=== PATIENT | female | born 1995 | race Caucasian/White ===

== ENCOUNTER 2022-10-10 18:37 | Emergency (ER) | payer OTHER ==
[2022-10-10 18:46] VITALS: BP 128/76
[2022-10-10] MEDS ORDERED: BUFFERED LIDOCAINE 10 ML SYRINGE SUBQ STA (19:11)
[2022-10-10] MEDS ORDERED: AMOX/CLAV 875 MG/125 MG TABLET PO STA (19:11)
--- NOTE | 2022-10-10 19:12 | ED Physician Documentation ---
PD HPI WOUND RECHECK - Stated complaint Stated Complaint: FINGER INFECTION - Chief complaint Chief Complaint: Wound - Histroy obtained from History obtained from: Patient (3 to 4 days of swelling of the right ring finger with some streaking and increased pain today. Tetanus is up-to-date.) PD PAST MEDICAL HISTORY - Present Medications Home Medications: Ambulatory Orders Medication Instructions Recorded Confirmed Amox/Clav 875/125 [Augmentin] 1 each PO Q12H #14 tablet 10/10/22 - Allergies Allergies/Adverse Reactions: Allergies Allergy/AdvReac Type Severity Reaction Status Date / Time No Known Drug Allergies Allergy Verified 10/10/22 18:46 PD ED PE NORMAL - Vitals Vital signs reviewed: Yes - General General: Alert and oriented X 3, No acute distress - Extremities Extremities: Other (She has a large paronychia of the right ring finger with surrounding cellulitis.) - Neuro Neuro: Alert and oriented X 3, Normal speech Results - Vitals Vitals: Vital Signs - 24 hr 10/10/22 18:43 Temperature 36.6 C Heart Rate 62 Respiratory 16 Rate Blood Pressure 128/76 O2 Saturation 100 Oxygen O2 Source Room air Procedures - General procedure General procedure: A digital block was done With buffered lidocaine and then a stab incision was made into the purulent part of the paronychia. Pus was returned and a culture was obtained. She tolerated this well. Departure - Departure Disposition: 01 Home, Self Care Clinical Impression: Paronychia Condition: Good Record reviewed to determine appropriate education?: Yes Instructions: ED Fingernail Infec Prescriptions: Amox/Clav 875/125 [Augmentin] 1 each PO Q12H #14 tablet Comments: I sent your prescription electronically to the [facility] pharmacy on the [place]. We are performing a wound culture, the results should be done in 48-72 hours. If antibiotic change is necessary we will call you. Return if worse in the meantime, especially if you develop increased pain, fevers, cannot keep down the medication. Otherwise follow-up with your physician in approximately 2-3 days.
== END 2022-10-10 19:46 | disposition home or self-care (01) ==
LOC: ED 18:37
DX: L03.011 Cellulitis of right finger (principal)
CPT/HCPCS: 10060; 87070; 87205; 99283; A9270

== ENCOUNTER 2023-03-04 11:08 | Emergency (ER) | payer OTHER ==
[2023-03-04 11:45] LABS: BASOPHILS % (AUTO) 0.4 %; EOSINOPHILS % (AUTO) 0.1 %; HCT - HEMATOCRIT 37.6 % (37.0-47.0); HGB - HEMOGLOBIN 12.4 g/dL (12.0-16.0); LYMPHOCYTES % (AUTO) 20.1 %; MEAN CORPUSCULAR HEMOGLOBIN 31.3 pg (27.0-31.0); MEAN CORPUSCULAR VOLUME 94.9 fL (81.0-99.0); MEAN PLATELET VOLUME 9.3 fL (7.9-10.8); MONOCYTES # (AUTO) 0.7 10^3/uL (0.0-1.0); MONOCYTES % (AUTO) 6.5 %; NEUTROPHILS # (AUTO) 7.3 10^3/uL (1.5-6.6); NEUTROPHILS % (AUTO) 72.7 %; PLT - PLATELET COUNT 268 10^3/uL (130-450); RED BLOOD COUNT 3.96 10^6/uL (4.20-5.40); RED CELL DISTRIBUTION WIDTH 11.9 % (12.0-15.0); WHITE BLOOD COUNT 10.1 x10^3/uL (4.8-10.8)
[2023-03-04 11:56] LABS: ALBUMIN 4.8 g/dL (3.2-5.5); ALBUMIN/GLOBULIN RATIO 1.8 (1.0-2.2); BILIRUBIN,TOTAL 0.4 mg/dL (0.2-1.0); CALCIUM 9.5 mg/dL (8.5-10.3); CREATININE 0.7 mg/dL (0.6-1.3); POTASSIUM 3.8 mmol/L (3.5-4.5); TOTAL PROTEIN 7.5 g/dL (6.4-8.9)
--- NOTE | 2023-03-04 13:24 | ED Physician Documentation ---
History of Present Illness - Stated complaint Stated Complaint: FEMALE - Chief complaint Chief Complaint: Abd Pain - Additonal information Additional information: 28-year-old female referred to the emergency department for evaluation of p ossible miscarriage in first trimester . LMP 01/24/2023. G3, P2. Previous pregnancies delivered without complications. Patient states that last night she began having vaginal bleeding that feels menstrual-like. She is also been having some cramping. No fevers. No nausea or vomiting. No urinary symptoms. She is Rh+. Review of Systems Constitutional: denies: Fever, Chills : reports: LMP (01/24/2023), Vaginal bleeding. denies: Dysuria, Frequency Musculoskeletal: denies: Neck pain PD PAST MEDICAL HISTORY - Past Surgical History Past Surgical History: No - Present Medications Home Medications: Ambulatory Orders Medication Instructions Recorded Confirmed Amox/Clav 875/125 [Augmentin] 1 each PO Q12H #14 tablet 10/10/22 - Allergies Allergies/Adverse Reactions: Allergies Allergy/AdvReac Type Severity Reaction Status Date / Time No Known Drug Allergies Allergy Verified 03/04/23 11:21 - Social History Does the pt smoke?: No Smoking Status: Never smoker Does the pt drink ETOH?: No Does the pt have substance abuse?: No - Immunizations Immunizations are current?: Yes PD ED PE NORMAL - General General: Alert and oriented X 3, No acute distress - HEENT HEENT: PERRL - Cardiac Cardiac: No murmur - Respiratory Respiratory: Clear bilaterally - Abdomen Abdomen: Normal bowel sounds, Soft, Non tender Results - Vitals Vitals: Vital Signs - 24 hr 03/04/23 03/04/23 03/04/23 11:19 11:21 13:21 Temperature 36.5 C 36.5 C Heart Rate 80 80 98 Respiratory 20 20 18 Rate Blood Pressure 108/70 108/70 110/70 O2 Saturation 99 99 99 Oxygen O2 Source Room air - Labs Labs: Laboratory Tests 03/04/23 03/04/23 03/04/23 11:31 11:31 11:31 WBC 10.1 RBC 3.96 L Hgb 12.4 Hct 37.6 MCV 94.9 MCH 31.3 H MCHC 33.0 RDW 11.9 L Plt Count 268 MPV 9.3 Neut # (Auto) 7.3 H Lymph # (Auto) 2.0 Fallon # (Auto) 0.7 Eos # (Auto) 0.0 Baso # (Auto) 0.0 Absolute Nucleated RBC 0.00 Nucleated RBC % 0.0 Sodium 137 Potassium 3.8 Chloride 105 Carbon Dioxide 27 Anion Gap 5.0 L BUN 14 Creatinine 0.7 Estimated GFR (MDRD) 98 Glucose 92 Calcium 9.5 Total Bilirubin 0.4 AST 13 ALT 12 Alkaline Phosphatase 58 Total Protein 7.5 Albumin 4.8 Globulin 2.7 Albumin/Globulin Ratio 1.8 Lipase 20 Beta HCG, Quant Blood Type O POSITIVE 03/04/23 11:31 WBC RBC Hgb Hct MCV MCH MCHC RDW Plt Count MPV Neut # (Auto) Lymph # (Auto) Fallon # (Auto) Eos # (Auto) Baso # (Auto) Absolute Nucleated RBC Nucleated RBC % Sodium Potassium Chloride Carbon Dioxide Anion Gap BUN Creatinine Estimated GFR (MDRD) Glucose Calcium Total Bilirubin AST ALT Alkaline Phosphatase Total Protein Albumin Globulin Albumin/Globulin Ratio Lipase Beta HCG, Quant 361.5 Blood Type - Rads (name of study) pelvic US Relevant Findings:: Final report received (Possible gestational sac at the lower uterine segment. Left corpus luteal cyst. No definitive findings of IUP) PD Medical Decision Making - ED course Complexity details: reviewed results, re-evaluated patient, d/w patient ED course: 28-year-old female presents emergency department for evaluation of vaginal bleeding the first trimester . LMP 01/24/2023. G3, P2. She began having menstrual-like vaginal bleeding last night. Patient is Rh+. CBC hCG and electrolytes obtained today and is interpreted by myself show no acute worrisome abnormalities. She is not anemic. Vital signs have been without derangement. An ultrasound completed showed no confirmative evidence of an IUP but likely a gestational sac at the lower uterine segment. There is a left corpus luteal cyst. Given the menstrual-like vaginal bleeding this likely indicates the patient is having a spontaneous miscarriage. Her hormone level today is 360. She is advised to follow-up with her PCP or OB in the next 48 to 72 hours to have the hormone levels rechecked. The usual emergent return precautions for failure of the bleeding to resolve, pain pelvic pain or fevers was discussed. Departure - Departure Disposition: 01 Home, Self Care Clinical Impression: Threatened miscarriage in early Condition: Stable Record reviewed to determine appropriate education?: Yes Instructions: ED Miscarriage Poss Comments: Today you are seen because she began having menstrual-like vaginal bleeding in the first trimester of . Your hormone level today is 360. If the is going to continue normally, hormone levels will typically double every 48-72 hours. You should have your primary doctors order an hCG on Monday. If rising there is hope that the could continue. The ultrasound today did not show definitive IUP though there was a gestational sac at the lower uterine segment. With the type of bleeding you are describing it is possible that this is a spontaneous miscarriage. If this is a spontaneous miscarriage you can expect a cycle to last a little longer than you would expect a normal cycle. I would be concerned if you develop sudden severe lower pelvic pain, had any fevers, severe chest pain or shortness of air. Forms: PCP List
[2023-03-04 15:09] VITALS: BP 112/72
--- NOTE | 2023-03-04 15:49 | Ultrasound Report ---
PROCEDURE: OB First Trimester w/TV INDICATIONS: vaginal bleeding OUTSIDE/PRIOR DATING DATA: Last menstrual period (LMP): 01/24/2023. LMP-based estimated date of delivery (EMMA): 10/31/2023. First dating scan (date and location): Not applicable. Estimated date of delivery (EMMA) from first dating scan: Not applicable. TECHNIQUE: Real-time scanning was performed of the fetus and maternal pelvic organs, with image documentation. Endovaginal scanning was also performed to better visualize the fetus and maternal ovaries. COMPARISON: None. FINDINGS: Uterus is appropriate in size and position. There is a suggestion of a gestational sac within the end ometrial canal without a significant trophoblastic reaction in the lower uterine segment. No internal contents. Both ovaries have appropriate size and echotexture. Left-sided corpus luteum cyst present. No free fl uid or adnexal mass. IMPRESSION: Possible gestational sac in the lower uterine segment. Differential possibilities include in progress, pseudosac with nonvisualized ectopic . Normal early is also possible bu t less likely. Advise short-term follow-up Reviewed by: Mathieu Mueller MD on 03/04/2023 2:48 PM [facility] Approved by: Mathieu Mueller MD on 03/04/2023 2:48 PM [facility] Station ID: [id number]
== END 2023-03-04 15:05 | disposition home or self-care (01) ==
LOC: ED 11:08
DX: O20.0 Threatened abortion (principal)
CPT/HCPCS: 36415; 80053; 83690; 84702; 85025; 86900; 86901; 99283; 99284

== ENCOUNTER 2023-03-07 10:20 | Outpatient (CLI) | payer OTHER | END 2023-03-07 10:21 | disposition home or self-care (01) | LOC: LAB 10:20 | PROVIDERS: ATTEND Nurse Practitioner | DX: O20.0 Threatened abortion (principal) | CPT/HCPCS: 36415; 84702 ==

== ENCOUNTER 2023-03-09 08:00 | Outpatient (CLI) | payer OTHER ==
[2023-03-09 17:53] LABS: CHLAMYDIA TRACHOMATIS DNA NEGATIVE (NEGATIVE); NEISSERIA GONORRHOEAE DNA NEGATIVE (NEGATIVE)
[2023-03-09 19:46] LABS: BACTERIAL VAGINOSIS DNA NEGATIVE (NEGATIVE); CANDIDA GLABRATA DNA NEGATIVE (NEGATIVE); CANDIDA GROUP DNA NEGATIVE (NEGATIVE); CANDIDA KRUSEI DNA NEGATIVE (NEGATIVE); TRICHOMONAS VAGINALIS DNA NEGATIVE (NEGATIVE)
== END 2023-03-09 23:59 | disposition home or self-care (01) ==
LOC: LAB.WC 08:00
PROVIDERS: ATTEND Nurse Practitioner
DX: N89.8 Other specified noninflammatory disorders of vagina (principal); O03.80 Unspecified complication following complete or unspecified spontaneous abortion
CPT/HCPCS: 36415; 81514; 84702; 87491; 87591; 87661

== ENCOUNTER 2023-03-09 08:30 | Outpatient (CLI) | payer OTHER | END 2023-03-09 08:31 | disposition home or self-care (01) | LOC: LAB 08:30 | PROVIDERS: ATTEND Nurse Practitioner | DX: O03.80 Unspecified complication following complete or unspecified spontaneous abortion (principal) | CPT/HCPCS: 36415; 84702 ==

== ENCOUNTER 2023-03-15 10:27 | Outpatient (CLI) | payer OTHER | END 2023-03-15 10:28 | disposition home or self-care (01) | LOC: LAB 10:27 | PROVIDERS: ATTEND Nurse Practitioner | DX: O03.80 Unspecified complication following complete or unspecified spontaneous abortion (principal) | CPT/HCPCS: 36415; 84702 ==

== ENCOUNTER 2023-04-22 17:41 | Emergency (ER) | payer OTHER ==
--- NOTE | 2023-04-22 17:59 | ED Physician Documentation ---
PD HPI UPPER EXT INJURY - Stated complaint Stated Complaint: L FINGER INJ - Chief complaint Chief Complaint: Trauma Ext - History obtained from History obtained from: Patient (3 days ago she hit her left index finger with a sledgehammer. Since then she noted an occasional numbness in that area. The skin did not break. No other injuries.) PD PAST MEDICAL HISTORY - Past Surgical History Past Surgical History: No - Present Medications Home Medications: Ambulatory Orders Medication Instructions Recorded Confirmed No Known Home Medications 04/22/23 04/22/23 - Allergies Allergies/Adverse Reactions: Allergies Allergy/AdvReac Type Severity Reaction Status Date / Time No Known Drug Allergies Allergy Verified 03/04/23 11:21 - Social History Does the pt smoke?: No Smoking Status: Never smoker Does the pt drink ETOH?: No Does the pt have substance abuse?: No - Immunizations Immunizations are current?: Yes PD ED PE NORMAL - Vitals Vital signs reviewed: Yes - General General: Alert and oriented X 3, No acute distress - Extremities Extremities: Other (There is 2 blood blisters on the proximal side radially of the left index finger. No limited range of motion, no tenderness. Normal distal sensation and cap refill and pulse ox in that digit is 100%.) - Neuro Neuro: Alert and oriented X 3, Normal speech Results - Vitals Vitals: Vital Signs - 24 hr 04/22/23 17:45 Temperature 37.2 C Heart Rate 74 Respiratory 16 Rate Blood Pressure 129/86 H O2 Saturation 98 Oxygen O2 Source Room air PD Medical Decision Making - ED course ED course: She has a neuropraxia from an injury and swelling. No evidence of digital nerve injury at this time. No vascular injury. Departure - Departure Disposition: 01 Home, Self Care Clinical Impression: Neuropraxia of left upper extremity Qualifiers: Encounter type: initial encounter Qualified Code(s): S44.92XA - Injury of unspecified nerve at shoulder and upper arm level, left arm, initial encounter Condition: Good Record reviewed to determine appropriate education?: Yes Comments: I expect the numbness to go away as the swelling goes away. No evidence of vascular issue. Return for new or worsening symptoms. Forms: PCP List
[2023-04-22 18:00] VITALS: BP 129/86; O2SAT 98
== END 2023-04-22 18:00 | disposition home or self-care (01) ==
LOC: ED 17:41
DX: S64.491A Injury of digital nerve of left index finger, initial encounter (principal); W20.8XXA Other cause of strike by thrown, projected or falling object, initial encounter
CPT/HCPCS: 99281; 99282

== ENCOUNTER 2023-07-05 08:00 | Outpatient (CLI) | payer OTHER ==
[2023-07-06 09:49] LABS: BILIRUBIN,URINE NEGATIVE (NEGATIVE); GLUCOSE, URINE (UA) NEGATIVE (NEGATIVE); KETONES,URINE (UA) NEGATIVE (NEGATIVE); LEUKOCYTE ESTERASE, URINE NEGATIVE (NEGATIVE); NITRITE,URINE NEGATIVE (NEGATIVE); OCCULT BLOOD,URINE NEGATIVE (NEGATIVE); PH,URINE 6.5 PH (5.0-7.5); PROTEIN,URINE NEGATIVE (NEGATIVE); UROBILINOGEN,URINE 0.2 (NORMAL) E.U./dL (NORMAL)
[2023-07-06 10:01] LABS: CLARITY,URINE HAZY (CLEAR)
[2023-07-06 10:05] LABS: AMORPHOUS SEDIMENT,UR Few /LPF; BACTERIA,URINE Few /HPF (None Seen); RBC,URINE 0-5 /HPF (0-5); SQUAMOUS EPITHELIAL CELL,UR FEW Squamous (<= Few); WBC,URINE 0-3 /HPF (0-5)
== END 2023-07-05 23:59 | disposition home or self-care (01) ==
LOC: LAB.WC 08:00
PROVIDERS: ATTEND Nurse Practitioner
DX: Z34.90 Encounter for supervision of normal pregnancy, unspecified, unspecified trimester (principal)
CPT/HCPCS: 81001; 87086

== ENCOUNTER 2023-07-20 21:45 | Outpatient (CLI) | payer OTHER ==
--- NOTE | 2023-07-21 11:35 | Ultrasound Report ---
PROCEDURE: OB First Trimester INDICATIONS: + PREG TEST OUTSIDE/PRIOR DATING DATA: Last menstrual period (LMP): 05/23/2023. LMP-based estimated date of delivery (EMMA): 02/27/2024. First dating scan (date and location): 07/10/2023 at the provider's office. Estimated date of delivery (EMMA) from first dating scan: 02/24/2024. TECHNIQUE: Real-time scanning was performed of the fetus and maternal pelvic organs, with image documentation. COMPARISON: None. FINDINGS: Intrauterine gestational sac present. Embryo: There is a single living IUP. The estimated gestational age is 8 weeks 5 days. Heart rate: 180 bpm. Other: A yolk sac is present. There is small perigestational bleed measuring 1.4 x 1.1 x 1.3 cm. Measurement variability in dating: +/- 4 weeks by LMP, +/- 7 days by mean sac diameter (use before 6 weeks gestation if crown-rump length not able to be measured), +/- 5 days by crown-rump length (6-12 weeks gestation). Maternal organs: Ovaries appear within normal limits. There is a corpus luteal cyst in left ovary. IMPRESSION: 1. Single living IUP redemonstrated. The estimated gestational age is 8 weeks 5 days, concordant with clinical dating. 2. A small perigestational bleed measuring 1.4 x 1.1 x 1.3 cm. 3. Corpus luteal cyst noted in the left ovary. Reviewed by: Sukhjinder Drummond MD on 07/21/2023 11:34 AM PST Approved by: Sukhjinder Drummond MD on 07/21/2023 11:34 AM PST Station ID: [id number]
== END 2023-07-20 23:59 | disposition home or self-care (01) ==
LOC: DI 21:45
PROVIDERS: ATTEND Nurse Practitioner
DX: O20.8 Other hemorrhage in early pregnancy (principal); O34.81 Maternal care for other abnormalities of pelvic organs, first trimester; N83.12 Corpus luteum cyst of left ovary; Z3A.08 8 weeks gestation of pregnancy

== ENCOUNTER 2023-08-10 08:00 | Outpatient (CLI) | payer OTHER ==
[2023-08-10 19:47] LABS: CHLAMYDIA TRACHOMATIS DNA NEGATIVE (NEGATIVE); NEISSERIA GONORRHOEAE DNA NEGATIVE (NEGATIVE); TRICHOMONAS VAGINALIS DNA NEGATIVE (NEGATIVE)
== END 2023-08-10 23:59 | disposition home or self-care (01) ==
LOC: LAB.WC 08:00
PROVIDERS: ATTEND Nurse Practitioner
DX: Z11.3 Encounter for screening for infections with a predominantly sexual mode of transmission (principal)
CPT/HCPCS: 87491; 87591; 87661

== ENCOUNTER 2023-08-11 11:39 | Outpatient (CLI) | payer OTHER ==
[2023-08-11 12:04] LABS: BASOPHILS % (AUTO) 0.3 %; EOSINOPHILS # (AUTO) 0.1 10^3/uL (0.0-0.7); EOSINOPHILS % (AUTO) 0.7 %; HCT - HEMATOCRIT 35.1 % (37.0-47.0); HGB - HEMOGLOBIN 11.9 g/dL (12.0-16.0); LYMPHOCYTES # (AUTO) 2.8 10^3/uL (1.5-3.5); LYMPHOCYTES % (AUTO) 27.3 %; MEAN CORPUSCULAR HEMOGLOBIN 31.6 pg (27.0-31.0); MEAN CORPUSCULAR HGB CONC 33.9 g/dL (32.0-36.0); MEAN CORPUSCULAR VOLUME 93.1 fL (81.0-99.0); MEAN PLATELET VOLUME 9.1 fL (7.9-10.8); MONOCYTES # (AUTO) 0.7 10^3/uL (0.0-1.0); MONOCYTES % (AUTO) 7.1 %; NEUTROPHILS # (AUTO) 6.6 10^3/uL (1.5-6.6); NEUTROPHILS % (AUTO) 64.1 %; PLT - PLATELET COUNT 281 10^3/uL (130-450); RED BLOOD COUNT 3.77 10^6/uL (4.20-5.40); RED CELL DISTRIBUTION WIDTH 12.6 % (12.0-15.0); WHITE BLOOD COUNT 10.3 x10^3/uL (4.8-10.8)
[2023-08-12 03:14] LABS: HCV AB Non Reactive (Non Reactive)
[2023-08-12 06:34] LABS: RPR Non Reactive (Non Reactive)
[2023-08-12 08:17] LABS: HBsAG SCREEN Negative (Negative); HIV SCREEN 4TH GENERATION Non Reactive (Non Reactive)
[2023-08-12 13:17] LABS: VARICELLA-ZOSTER AB IGG 1296 index (Immune >165)
== END 2023-08-11 11:40 | disposition home or self-care (01) ==
LOC: LAB 11:39
PROVIDERS: ATTEND Obstetrics & Gynecology
DX: Z34.90 Encounter for supervision of normal pregnancy, unspecified, unspecified trimester (principal)
CPT/HCPCS: 36415; 85025; 86592; 86762; 86787; 86803; 86850; 86900; 86901; 87340; 87389

== ENCOUNTER 2023-09-22 10:38 | Outpatient (CLI) | payer OTHER ==
[2023-09-26 21:07] LABS: AFP MOM 1.21 (.); AFP VALUE 51.3 ng/mL (.); DIA MOM 1.61 (.); DSR (BY AGE) 1 IN 613 (.); DSR (SECOND TRIMESTER) 1 IN 2105 (.); GEST. AGE ON COLLECTION DATE 17.4 WEEKS (.); HCG MOM 1.68 (.); HCG VALUE 56508 mIU/mL (.); INSULIN DEP DIABETES No (.); MULTIPLE GESTATION No (.); OPEN SPINA BIFIDA RISK 1 IN 6301 (.); RACE Caucasian (.); RESULTS Report (.); TEST RESULTS *Screen Negative* (.); TRISOMY 18 RISK Not increased (.); UE3 MOM 1.19 (.); UE3 VALUE 1.56 ng/mL (.); WEIGHT 141 lbs (.)
== END 2023-09-22 10:39 | disposition home or self-care (01) ==
LOC: LAB.N 10:38
PROVIDERS: ATTEND Nurse Practitioner
DX: Z34.90 Encounter for supervision of normal pregnancy, unspecified, unspecified trimester (principal)
CPT/HCPCS: 36415; 81511

== ENCOUNTER 2023-10-11 16:52 | Outpatient (CLI) | payer OTHER ==
--- NOTE | 2023-10-12 11:39 | Ultrasound Report ---
PROCEDURE: OB Anatomy Scan INDICATIONS: SUPERVISION OF OUTSIDE/PRIOR DATING DATA: Last menstrual period (LMP): 05/23/2023. LMP-based estimated date of delivery (EMMA): 02/27/2024. First dating scan (date and location): 07/20/2023. Estimated date of delivery (EMMA) from first dating scan: 02/24/2024. The below data below was generated using the clinical EMMA of 02/27/2024 TECHNIQUE: Real-time scanning was performed of the fetus, with image documentation and biometric measurements. Endovaginal scanning: Not performed. COMPARISON: OB ultrasound 07/20/2023. FINDINGS: General: A single living intrauterine gestation is present. Presentation: Variable Placenta: Placental position is posterior. Low lying placenta 1.1 cm from the internal cervical os. Prominent placental lakes measuring 1.6 x 1 cm. Amniotic fluid index: 14.7 cm, within normal limits for gestational age. Largest pocket 5.2 cm heart rate: 145 beats per minute. Maternal cervical canal: 5.5 cm long; normal length is 2.5 cm or more. Cervix is closed. biometrics: Biparietal diameter: 5.1 cm, 21 weeks 2 days. 89 percentile. Head circumference: 18.6 cm, 20 weeks 6 days. 75th percentile Abdominal circumference: 16.9 cm, 22 weeks 0 days. 92nd percentile Femur length: 3.4 cm, 20 weeks 3 days. 55th percentile. Estimated gestational age from initial scan: 20 weeks 1 day Composite gestational age from present scan: 21 weeks 0 days Estimated weight and percentile: 410 g, 95th percentile. Measurement variability in biometric dating: +/- 10 days from 12-20 weeks gestation, +/- 2 weeks from 20-30 weeks gestation, +/- 3 weeks at 30 weeks gestation or later. Anatomic survey: Neuro: Ventricles are normal at less than 10 mm. Cisterna magna is normal at 3-11 mm. Cerebellum i s normal in size and morphology. Nuchal skin fold: Normal at less than 6 mm between 14 and 20 weeks gestational age. Face: Nose and lips, facial profile are normal. Spine: No evidence for spina bifida. Heart: 4-chambered heart is present, with normal ventricular outflow tracts. Diaphragm: Diaphragm is intact. Stomach: Left-sided stomach is present. Kidneys: No hydronephrosis. Normal is less than 5 mm in 2nd trimester, less than 7 mm in 3rd trimester. Cord: 3 vessel cord. Cord insert 1.3 cm from the placental edge. Bladder: Normal in size. Extremities: All 4 extremities are visualized. IMPRESSION: 1. Kitchen living intrauterine at 21 weeks 0 days based on today's ultrasound. This is co ncordant with the first trimester ultrasound. Fetus is in the 95th percentile for weight. 2. Normal amniotic fluid. Low-lying placenta. 1.1 cm from the internal cervical os. 3. Marginal cord insertion 1.3 cm from the placental edge. Otherwise normal anatomic survey. Recommend follow-up OB ultrasound. Reviewed by: John Sanon MD on 10/12/2023 11:38 AM [facility] Approved by: John Sanon MD on 10/12/2023 11:38 AM [facility] Station ID: [id number]
== END 2023-10-11 16:53 | disposition home or self-care (01) ==
LOC: DI 16:52
PROVIDERS: ATTEND Nurse Practitioner
DX: O44.42 Low lying placenta NOS or without hemorrhage, second trimester (principal); O43.192 Other malformation of placenta, second trimester; Z3A.21 21 weeks gestation of pregnancy

== ENCOUNTER 2023-11-27 09:14 | Outpatient (CLI) | payer OTHER ==
[2023-11-27 10:30] LABS: HCT - HEMATOCRIT 32.3 % (37.0-47.0); HGB - HEMOGLOBIN 10.3 g/dL (12.0-16.0); MEAN CORPUSCULAR HGB CONC 31.9 g/dL (32.0-36.0); MEAN CORPUSCULAR VOLUME 100.3 fL (81.0-99.0); MEAN PLATELET VOLUME 8.7 fL (7.9-10.8); RED BLOOD COUNT 3.22 10^6/uL (4.20-5.40); RED CELL DISTRIBUTION WIDTH 14.5 % (12.0-15.0); WHITE BLOOD COUNT 16.1 x10^3/uL (4.8-10.8)
== END 2023-11-27 09:15 | disposition home or self-care (01) ==
LOC: LAB 09:14
PROVIDERS: ATTEND Nurse Practitioner
DX: Z34.90 Encounter for supervision of normal pregnancy, unspecified, unspecified trimester (principal)
CPT/HCPCS: 36415; 82950; 85027

== ENCOUNTER 2023-12-04 08:43 | Outpatient (CLI) | payer OTHER ==
[2023-12-04 09:21] LABS: GTT GLUCOSE,FASTING 88 mg/dL (74-109)
== END 2023-12-04 08:44 | disposition home or self-care (01) ==
LOC: LAB 08:43
PROVIDERS: ATTEND Nurse Practitioner
DX: O99.810 Abnormal glucose complicating pregnancy (principal)
CPT/HCPCS: 36415; 82951; 82952

== ENCOUNTER 2023-12-06 18:53 | Outpatient (CLI) | payer OTHER ==
--- NOTE | 2023-12-07 13:02 | Ultrasound Report ---
PROCEDURE: OB Follow up INDICATIONS: LOW LYING PLACENTA OUTSIDE/PRIOR DATING DATA: Last menstrual period (LMP): 05/23/2023. LMP-based estimated date of delivery (EMMA): 02/27/2024. First dating scan (date and location): 07/10/2023, [place]. Estimated date of delivery (EMMA) from first dating scan: 02/24/2024. The below data below was generated using the clinical EMMA of 02/27/2024 TECHNIQUE: Real-time scanning was performed of the fetus, with image documentation and biometric measurements. Endovaginal scanning: Not performed. COMPARISON: OB ultrasound on October 11, 2023 FINDINGS: General: A single living intrauterine gestation is present. Presentation: Vertex Placenta: Placental position is posterior, without previa. Previously seen low lying placenta is no longer seen. Amniotic fluid index: 17.7 cm, within normal limits for gestational age. heart rate: 145 beats per minute. Maternal cervical canal: 4.6 cm long; normal length is 2.5 cm or more. biometrics: Biparietal diameter: 7.62 cm, 30 weeks and 4 days, 96% Head circumference: 27.76 cm, 30 weeks and 3 days, 85% Abdominal circumference: 27.02 cm, 31 weeks and 1 day, 98.5% Femur length: 5.57 cm, 29 weeks and 2 days, 70% Estimated gestational age from initial scan: 28 weeks and 1 day Composite gestational age from present scan: 30 weeks and 3 days Estimated weight and percentile: 1573.5 g, 98.5% Measurement variability in biometric dating: +/- 10 days from 12-20 weeks gestation, +/- 2 weeks from 20-30 weeks gestation, +/- 3 weeks at 30 weeks gestation or more. Other: Placental lakes not imaged today. Previously seen marginal cord insertion is no longer seen. IMPRESSION: 1.Single living intrauterine gestation in vertex presentation. 2.Previously seen low lying placenta is no longer seen. Previously seen marginal cord insertion is no longer seen. 3.Estimated weight is at 98.5% which may be seen in the setting of macrosomia. Attention on fol low-up imaging. 4.Amniotic fluid index is within normal limits. Reviewed by: Deann Shook MD on 12/07/2023 1:00 PM PDT Approved by: Deann Shook MD on 12/07/2023 1:00 PM [facility] Station ID: [id number]
== END 2023-12-06 18:54 | disposition home or self-care (01) ==
LOC: DI 18:53
PROVIDERS: ATTEND Nurse Practitioner
DX: O44.43 Low lying placenta NOS or without hemorrhage, third trimester (principal)

== ENCOUNTER 2024-01-04 12:31 | Outpatient (CLI) | payer OTHER ==
--- NOTE | 2024-01-04 14:42 | Ultrasound Report ---
PROCEDURE: OB Follow up INDICATIONS: ABN GLUCOSE TOLERANCE IN OUTSIDE/PRIOR DATING DATA: Last menstrual period (LMP): 05/23/2023. LMP-based estimated date of delivery (EMMA): 02/27/2024. First dating scan (date and location): 07/10/2023. Estimated date of delivery (EMMA) from first dating scan: 02/24/2024. The below data below was generated using the clinical EMMA of 02/27/2024 TECHNIQUE: Real-time scanning was performed of the fetus, with image documentation and biometric measurements. Endovaginal scanning: Not performed. COMPARISON: 12/06/2023 FINDINGS: General: A single living intrauterine gestation is present. Presentation: Vertex Placenta: Placental position is posterior, without previa. Amniotic fluid index: 19.4 cm, within normal limits for gestational age. heart rate: 129 beats per minute. Maternal cervical canal: 5.6 cm long; normal length is 2.5 cm or more. biometrics: Biparietal diameter: 8.6 cm, 34 weeks 5 days, 96% Head circumference: 31.5 cm, 35 weeks 2 days, 88% Abdominal circumference: 31.6 cm, 35 weeks 3 days, 99% Femur length: 6.3 cm, 32 weeks 3 days, 39% Estimated gestational age from initial scan: 32 weeks 2 days Composite gestational age from present scan: 34 weeks 3 days Estimated weight and percentile: 2459 g, 96% Measurement variability in biometric dating: +/- 10 days from 12-20 weeks gestation, +/- 2 weeks from 20-30 weeks gestation, +/- 3 weeks at 30 weeks gestation or more. Other: Not applicable. IMPRESSION: 1.Single live intrauterine consistent with 34 weeks and 3 days. 2.Estimated weight is in the 96th percentile. 3.Normal amniotic fluid index. Reviewed by: Jonnathan Angeles MD on 01/04/2024 2:40 PM PDT Approved by: Jonnathan Angeles MD on 01/04/2024 2:40 PM PDT Station ID: [id number]
== END 2024-01-04 12:32 | disposition home or self-care (01) ==
LOC: DI 12:31
PROVIDERS: ATTEND Obstetrics & Gynecology
DX: O99.810 Abnormal glucose complicating pregnancy (principal); Z3A.34 34 weeks gestation of pregnancy

== ENCOUNTER 2024-02-01 08:00 | Outpatient (CLI) | payer OTHER | END 2024-02-01 23:59 | disposition home or self-care (01) | LOC: LAB.WC 08:00 | PROVIDERS: ATTEND Nurse Practitioner | DX: O09.893 Supervision of other high risk pregnancies, third trimester (principal) | CPT/HCPCS: 87081; 87797 ==

== ENCOUNTER 2024-02-02 11:38 | Outpatient (CLI) | payer OTHER ==
--- NOTE | 2024-02-02 14:56 | Ultrasound Report ---
PROCEDURE: OB Follow up INDICATIONS: ABNORMAL GLUCOSE TOLERANCE IN OUTSIDE/PRIOR DATING DATA: Last menstrual period (LMP): 05/23/2023. LMP-based estimated date of delivery (EMMA): 02/27/2024. First dating scan (date and location): 07/10/2023. Estimated date of delivery (EMMA) from first dating scan: 02/24/2024. The below data below was generated using the working EMMA of 02/27/2024 TECHNIQUE: Real-time scanning was performed of the fetus, with image documentation and biometric measurements. Endovaginal scanning: Not performed. COMPARISON: 01/04/2024 FINDINGS: General: A single living intrauterine gestation is present. Presentation: Vertex Placenta: Placental position is posterior, without previa. Amniotic fluid index: 20.4 cm, within normal limits for gestational age. Largest pocket is 7.5 cm heart rate: 124 beats per minute. Maternal cervical canal: Closed and 4.1 cm long; normal length is 2.5 cm or more. biometrics: Biparietal diameter: 9.2 cm, 37 weeks 3 days, 86th percentile Head circumference: 33.2 cm, 37 weeks 6 days, 58th percentile Abdominal circumference: 36.5 cm, 40 weeks 3 days, greater than 99th percentile Femur length: 7.2 cm, 37 weeks 0 days, 64th percentile Estimated gestational age from initial scan: 36 weeks 3 days Composite gestational age from present scan: 38 weeks 1 day Estimated weight and percentile: 3679 g, 98th percentile Measurement variability in biometric dating: +/- 10 days from 12-20 weeks gestation, +/- 2 weeks from 20-30 weeks gestation, +/- 3 weeks at 30 weeks gestation or more. IMPRESSION: Single living intrauterine with estimated weight at the 98th percentile and estimated gestational age 12 days ahead of the expected gestational age. These parameters are similar compared to most recent prior exam. Amniotic fluid index 20.4 cm, similar compared to the prior PET 19.4 cm. Closed cervix. Reviewed by: Gale Fitch MD on 02/02/2024 2:55 PM PDT Approved by: Gale Fitch MD on 02/02/2024 2:55 PM PDT Station ID: [id number]
== END 2024-02-02 11:39 | disposition home or self-care (01) ==
LOC: DI 11:38
PROVIDERS: ATTEND Nurse Practitioner
DX: O99.810 Abnormal glucose complicating pregnancy (principal)

== ENCOUNTER 2024-02-20 09:12 | Inpatient (IN) | payer OTHER ==
[2024-02-20] MEDS ORDERED: SODIUM CHLORIDE FLUSH 0.9% 10 ML SYRINGE IVP PRN (09:40)
[2024-02-20] MEDS ORDERED: lidocaine 1% 20 ML MDV ID PRN (09:40)
[2024-02-20] MEDS ORDERED: TRANEXAMIC ACID IN NACL 1,000 MG/100 ML BAG IV PRN (09:40)
[2024-02-20] MEDS ORDERED: OXYTOCIN 10 UNIT/ML VIAL IM PRN (09:40)
[2024-02-20] MEDS ORDERED: CARBOPROST TROMETHAMINE 250 MCG/ML VIAL IM PRN (09:40)
--- NOTE | 2024-02-20 10:08 | HISTORY & PHYSICAL EXAMINATION ---
Admit History - Visit Reason Visit Reason: Other (Term IOL) - : 4 Parity: 2 Premature: 0 Ectopic: 0 : 1 Care: positive: [facility] Risk/History: positive: Other (abnormal glucose in ) Smoking Status: Never smoker - Mother's Labs Mother's Blood Type: positive: O Mother's RH: positive: Positive GBS: positive: Group B Strep Positive Rubella Status: positive: Immune - Other Maternal History Other Maternal History: This 29 yo @ 39 weeks gestation (by sure LMP and confirmed by 8+5 week ultrasound) presents for elective induction of labor. Had several hours of regular contractions last evening until about 2200, but slept through the night after. GBS+ She has been a patient of [facility] for the duration of her . has been relatively uncomplicated with the exception of some abnormal glucose testing. Borderline 1 hr gtt (139), 3 hour gtt without elevated results. Persistent suspected macrosomia. Began profiling on 01/15/24. Desired to start oral glycemic management for better control after noting increased to elevated fasting glucose. Metformin initiated on 02/09/2024. No Headache, visual changes or right upper quadrant abdominal pain. Denies urinary urgency or dysuria. ROS: All other symptoms reviewed and were negative except per HPI. Dating criteria: LMP: 05/23/2023 EMMA by LMP: 02/27/2024 07/20/2023 / 8+5 C/W Final EMMA: 02/27/2024 serial Exams agree Medical Hx: Unilateral right hearing loss Surgical Hx: wisdom teeth extraction Social Hx: Monogamous with male partner. Denies current use of alcohol, tobacco, marijuana or other recreational drugs. Active duty spouse. Her Mother is here for several to help with the children and new baby. Family Hx: Denies family history of congenital anomalies, Cystic Fibrosis or chromosomal abnormalities Recent BP: CBC: H&H 11.6/34.5%, PLT 223 Last u/s EFW: 02/02/24, EFW 3679g, 98%, OMARI 20.4 Total maternal weight gain: 42# Allergies: NKDA. Nitrous oxide triggered tinnitus. Medications: 500mg Metformin daily (started [id number]), iron, B6, LDASA, PNV OB Hx: G1: 2019 (F-"Mav") 8#3oz @40+4 - GHTN @ 40- 1st degree perineal laceration G2: 2020 (F- "Tommy") 8#8oz @ 40+2 - uncomplicated- delivered in one push- intact G3: 02/23/23: SAB G4: Current sex: It's a BOY! FOB: Ole Hinds ( active duty [place]) Support Animal: Lisa, (f), medical indication: difficulty hearing. LDASA at 12 weeks EFW 95% 3 VC Prominent placental gorman (1.6x1cm): Not noted on subsequent exam. OMARI normal (14.7). 28 week follow-up ordered. Excessive weight gain in : Will plan for third trimester ultrasound. Most recent EFW on 12/05: 98.5 percentile, AC 98.5 percentile.Discussed risk of shoulder dystocia and arrest of labor. Pre- Weight:132.4 BMI: 22.81 Blood type: O+ Rh: Postitive Antibody: Negative CBC: PLT 281 HCT 11.9 HGB 35.1 RUB: immune VZV: Immune HBsAg: Neg HepC: NR RPR/AB-EIA: NR HIV: NR PAP: 09/19/2023 NILM/HPV neg GC/CT: 08/10/23 Negative HSV: denies self and partner Genetic testin09/04/2023 QUAD- Negative Covid: covid x5 Flu:2021 FAS: 10/11/23 Placenta: Posterior/ lowlying 1.1cm from cx os (repeat scan ordered) Cord: 3VC OMARI: 14.7cm EFW: 410g; 95th%tile 12/05- EFW 98.5% low lying placenta/ marginal cord insertion resolved 50gm OGCT:139 3HR GTT: 88/147/121/57 TDAP:11/29 Breast Pump:11/29 3rd trimester H/H 10.3/32.3 PLT 244 GBS: 02/01/2024 Positive Delivery plan: anticipate Contraception: Physical exam: Normocephalic, atraumatic Bilateral LE's no edema Lungs: No respiratory distress Abdomen gravid, soft, nontender. EFW 4000 FHR baseline 125-135, moderate variability, + accelerations, no decelerations intermittent, non-painful contractions (>q10 minutes) SVE 3/60/-1, anterior. vertex, membranes intact Mood is good. Assessment: 29 yo @ 39 weeks gestation by 8+5 wk U/S Term elective induction of labor JAVED SCORE 10. FHR Cat I GBS Positive Plan: Admit to [facility] for induction of labor Continuous monitoring Initiate GBS prophylaxis Misoprostol 25mcg buccally x1 will reevaluate in 4 hours. Jacuzzi PRN. AVOID NITROUS. Hx of triggering tinnitus with use in dental setting. Epidural PRN maternal Request, consented by anesthesia team upon her arrival Anticipate . Patient verbally consents to my participation in her care in my role as a student nurse commercial sales specialist. JOSE Galan, Student Nurse Farm Mechanic Apprentice (Lucero Benjamin) Saw an evaluated patient with Student Nurse Farm Mechanic Apprentice Sourav. Patient doing very well. Agree with plan and anticipate . [place] No MD ([place] No) - HPI Current EDU 02/27/24 Gestation 39 Weeks and 0 Days 4 Vital Signs Temperature 98.2 F 02/20/24 09:36 Heart Rate 94 02/20/24 09:36 Respiratory Rate 16 02/20/24 09:36 Blood Pressure 111/65 02/20/24 09:36 Temperature 98.2 F 02/20/24 09:36 Heart Rate 94 02/20/24 09:36 Respiratory Rate 16 02/20/24 09:36 Blood Pressure 111/65 02/20/24 09:36 O2 Saturation If not protocol: Oxygen Flow, liters/minute Meds/Allgy - Home Medications Home Medications: Ambulatory Orders Medication Instructions Recorded Confirmed Aspirin [[place] Aspirin] 81 mg PO DAILY 02/20/24 02/20/24 Ferrous Sulfate [Feosol] 325 mg PO DAILY 02/20/24 02/20/24 Pnv No.95/Ferrous Fum/Folic AC 1 each PO DAILY 02/20/24 02/20/24 [ Tablet] Pyridoxine HCl (Vitamin B6) 25 mg PO DAILY 02/20/24 02/20/24 [Vitamin B-6] metFORMIN [Glucophage] 500 mg PO DAILY 02/20/24 02/20/24 - Allergies Allergies/Adverse Reactions: Allergies Allergy/AdvReac Type Severity Reaction Status Date / Time No Known Drug Allergies Allergy Verified 02/20/24 10:10 Physical - Abdominal Exam Contraction Frequency (min/apart): irregular Uterine Resting Tone: positive: Soft - Monitoring Strip Review: positive: Category I - Presentation Presentation: positive: Vertex - Vaginal Exam Membranes: positive: Membranes intact Dilation (in cm): 3 Effacement (%): 60 Station: positive: -1 Cervical Position: positive: Anterior - Abdominal Exam Vital Signs: Temp Pulse Resp BP Pulse Ox O2 Flow Rate 98.2 F 94 16 111/65 02/20/24 09:36 02/20/24 09:36 02/20/24 09:36 02/20/24 09:36 Plan for Labor - Plan For Labor I expect patient to be DC'd or transferred within 96 hours.: Yes
[2024-02-20] MEDS ORDERED: ROPIVACAINE 0.2% 0 MG/0 ML BAG EP ONE (10:26)
[2024-02-20] MEDS ORDERED: LIDOCAINE 2%-EPI 1:100000 20 ML MDV ONE ×2 (10:26→20:45)
[2024-02-20 10:55] LABS: BASOPHILS % (AUTO) 0.2 %; EOSINOPHILS # (AUTO) 0.1 10^3/uL (0.0-0.7); EOSINOPHILS % (AUTO) 0.4 %; HCT - HEMATOCRIT 34.5 % (37.0-47.0); HGB - HEMOGLOBIN 11.6 g/dL (12.0-16.0); LYMPHOCYTES # (AUTO) 2.3 10^3/uL (1.5-3.5); LYMPHOCYTES % (AUTO) 17.9 %; MEAN CORPUSCULAR HEMOGLOBIN 32.5 pg (27.0-31.0); MEAN CORPUSCULAR HGB CONC 33.6 g/dL (32.0-36.0); MEAN CORPUSCULAR VOLUME 96.6 fL (81.0-99.0); MEAN PLATELET VOLUME 9.9 fL (7.9-10.8); MONOCYTES # (AUTO) 0.9 10^3/uL (0.0-1.0); MONOCYTES % (AUTO) 7.2 %; NEUTROPHILS # (AUTO) 9.2 10^3/uL (1.5-6.6); NEUTROPHILS % (AUTO) 73.2 %; PLT - PLATELET COUNT 223 10^3/uL (130-450); RED BLOOD COUNT 3.57 10^6/uL (4.20-5.40); RED CELL DISTRIBUTION WIDTH 13.1 % (12.0-15.0); WHITE BLOOD COUNT 12.5 x10^3/uL (4.8-10.8)
[2024-02-20] MEDS: AMPICILLIN 2 GM in SODIUM CHLORIDE 0.9% MINIBAG 100 ML IV ONE (10:58)
--- NOTE | 2024-02-20 11:04 | ANESTHESIA ---
Pre-Anesthesia VS, & Labs - Diagnosis ACTIVE LABOR - Procedure EPIDURAL PLACEMENT FOR LABOR PAIN MANAGEMENT Vital Signs: Temp Pulse Resp BP Pulse Ox O2 Flow Rate 36.8 C 94 16 111/65 02/20/24 09:36 02/20/24 09:36 02/20/24 09:36 02/20/24 09:36 Height: 5 ft 4 in Weight (kg): 80.739 kg Body Mass Index: 30.5 BMI Classification: Obese - NPO >8 hours, Other - Is Patient ?: Yes - Lab Results Current Lab Results: Laboratory Tests 02/20/24 10:25: WBC 12.5 H, RBC 3.57 L, Hgb 11.6 L, Hct 34.5 L, MCV 96.6, MCH 32.5 H, MCHC 33.6, RDW 13.1, Plt Count 223, MPV 9.9, Neut # (Auto) 9.2 H, Lymph # (Auto) 2.3, Real # (Auto) 0.9, Eos # (Auto) 0.1, Baso # (Auto) 0.0, Absolute Nucleated RBC 0.00, Nucleated RBC % 0.0 Fish Bones: 02/20/24 10:25 Home Medications and Allergies Home Medications: Ambulatory Orders Aspirin [[place] Aspirin] 81 mg PO 02/20/24 Pnv No.95/Ferrous Fum/Folic AC [ Tablet] 1 each PO 02/20/24 metFORMIN [Glucophage] 500 mg PO 02/20/24 Active Medications Carboprost Tromethamine (Carboprost Tromethamine 250 Mcg/Ml Vial) 250 mcg IM Q15M PRN PRN Reason: Step 4: Hemorrhage protocol Oxytocin/Sodium Chloride (Pitocin/Sodium Chloride) 500 mls @ 999 mls/hr IV PRN PRN; Protocol PRN Reason: POST- HEMORR PREVENTION Stop: 02/25/24 09:41 Tranexamic Acid (Tranexamic 1,000 Mg/100ml-Nacl) 1,000 mg in 100 mls @ 600 mls/hr IV .ONCE PRN PRN Reason: EBL >1200mL and within 3hr Stop: 02/25/24 09:41 Ampicillin Sodium 1 gm/ Sodium (Chloride) 100 mls @ 200 mls/hr IV Q4H WING Lactated Ringer's (Lr) 1,000 mls @ 100 mls/hr IV .Q10H WING Lidocaine HCl (Lidocaine 1% 20 Ml Mdv) 20 ml ID .ONCE PRN PRN Reason: PERINEAL REPAIR Stop: 02/25/24 09:41 Methylergonovine Maleate (Methylergonovine 0.2 Mg/Ml Vial) 0.2 mg IM .ONCE PRN PRN Reason: Step 2: Hemorrhage protocol Stop: 02/25/24 09:41 Misoprostol (Misoprostol 200 Mcg Tablet) 800 mcg BC .ONCE PRN PRN Reason: Step 3: Hemorrhage protocol Stop: 02/25/24 09:41 Oxytocin (Oxytocin 10 Unit/Ml Vial) 10 unit IM .ONCE PRN PRN Reason: Step one: If no IV access Stop: 02/25/24 09:41 Sodium Chloride (Sodium Chloride Flush 0.9% 10 Ml Syringe) 10 ml IVP 0100,0900,1700 WING Sodium Chloride (Sodium Chloride Flush 0.9% 10 Ml Syringe) 10 ml IVP PRN PRN PRN Reason: NEEDED PER PROVIDER ORDERS No Known Home Medications 04/22/23 Aspirin [[place] Aspirin] 81 mg PO 02/20/24 Pnv No.95/Ferrous Fum/Folic AC [ Tablet] 1 each PO 02/20/24 metFORMIN [Glucophage] 500 mg PO 02/20/24 Allergies/Adverse Reactions: Allergies Allergy/AdvReac Type Severity Reaction Status Date / Time No Known Drug Allergies Allergy Verified 02/20/24 10:10 Anes History & Medical History - Anesthetic History Anesthesia Complications: reports: No previous complications Family history of Anesthesia Complications: Denies Family history of Malignant Hyperthermia: Denies - Medical History Cardiovascular: reports: None Pulmonary: reports: None Gastrointestinal: reports: None, Other (ACID REFLUX WHEN ) Urinary: reports: None Neuro: reports: None Musculoskeletal: reports: None Endocrine/Autoimmune: reports: None Blood Disorders: reports: None Skin: reports: None Smoking Status: Never smoker Psychosocial: reports: No issues indicated History of Cancer?: No - Obstetrical History : 4 Parity: 2 Events: reports: Other (abnormal glucose in ) Exam General: Alert, Oriented x3, Cooperative, No acute distress Dental: WNL Mouth Openin Fingerbreadth Neck Mobility: Normal Mallampati classification: I Thyromental Distance: 4-6 cm Respiratory: Lungs clear, Normal breath sounds, No respiratory distress, No accessory muscle use Cardiovascular: Regular rate, Normal S1, Normal S2, No murmurs Mental/Cognitive Status: Alert/Oriented X3, Normal for patient Cognitive Status: Within normal limits Plan Anesthesia Type: Epidural Consent for Procedure(s) Verified and Reviewed: Yes Code Status: Attempt Resuscitation ASA classification: 2-Mild systemic disease Is this case an emergency?: No
[2024-02-20] MEDS: miSOPROStoL 100 MCG TABLET BC ONE (11:41)
--- NOTE | 2024-02-20 11:46 | PHARMACY PROGRESS NOTE ---
- Best Possible Medication History Admit Date and Time: 02/20/24 0940 Processed by: Pharmacy Medications reviewed in ED?: No Medication History completed: Yes Patient Interview: Completed Secondary Source(s): Insurance records (Medication Reconciliation completed by Drafter GeophysicalPriya.) As the person ultimately responsible for medication therapy, providers are able to order a medication from an existing home medication list in [facility] via the "Reconcile Routine" prior to Confirmation of that medication by decision support analyst. Such practice is discouraged except when the physician, in their clinical judgment, deems that a medical need exists for a medication without regard to previous use.
[2024-02-20] MEDS: AMPICILLIN 1 GM in SODIUM CHLORIDE 0.9% MINIBAG 100 ML IV SCH (15:38)
[2024-02-20] MEDS: SODIUM CHLORIDE FLUSH 0.9% 10 ML SYRINGE IVP SCH (16:16)
[2024-02-20] MEDS: LACTATED RINGERS 1,000 ML IV SCH (16:18)
[2024-02-20] MEDS: OXYTOCIN/SODIUM CHLORIDE 500 ML IV SCH ×2 (16:18→16:49)
--- NOTE | 2024-02-20 16:53 | PROVIDER PROGRESS NOTE ---
<Lucero Benjamin - Last Filed: 02/20/24 16:54> Subjective - Prog Note Date Prog Note Date: 02/20/24 Prog Note Time: 16:15 - Subjective Pt reports feeling: Improved Subjective: S: Comfortable relaxing in bed. Some increased intensity with contractions but not significant. Spent the last 4 hours reading and ambulating in the [place]. coping well, understands situation after our discussions, fells well informed. O: FHR baseline 130, moderate variability, + accels, - decels. S/p 1 dose 25mcg BC misoprostol. A: 29yo @ 39wks gestation Elective IOL FHR Category I GBS positive. Amp #2 infusing P: Begin pitocin. Initiate at 2mU/mL with titration per protocol. Continuous monitoring. Epidural per maternal request. Reviewed suspected macrosomia and shoulder dystocia concerns with patient and nursing team. Reviewed plan of care with supervising physician Anticipate . JOSE Galan, Student Nurse Production Mechanic Objective - Vital Signs/Intake & Output Vital Signs: Vital Signs x48h Temp Pulse Resp BP 02/20/24 09:36 36.8 C 94 16 111/65 Intake & Output: Intake & Output 02/17/24 02/18/24 02/19/24 02/20/24 23:59 23:59 23:59 23:59 Intake Total 100 Balance 100 - Lab Results Fish Bones: 02/20/24 10:25 Other Labs: Lab Results x24hrs 02/20/24 02/20/24 Range/Units 10:25 10:25 WBC 12.5 H (4.8-10.8) x10^3/uL RBC 3.57 L (4.20-5.40) 10^6/uL Hgb 11.6 L (12.0-16.0) g/dL Hct 34.5 L (37.0-47.0) % MCV 96.6 (81.0-99.0) fL MCH 32.5 H (27.0-31.0) pg MCHC 33.6 (32.0-36.0) g/dL RDW 13.1 (12.0-15.0) % Plt Count 223 (130-450) 10^3/uL MPV 9.9 (7.9-10.8) fL Neut # (Auto) 9.2 H (1.5-6.6) 10^3/uL Lymph # (Auto) 2.3 (1.5-3.5) 10^3/uL Jasper # (Auto) 0.9 (0.0-1.0) 10^3/uL Eos # (Auto) 0.1 (0.0-0.7) 10^3/uL Baso # (Auto) 0.0 (0.0-0.1) 10^3/uL Absolute Nucleated RBC 0.00 x10^3/uL Nucleated RBC % 0.0 /100WBC Blood Type O POSITIVE Antibody Screen NEGATIVE <[place] No - Last Filed: 02/20/24 21:54> Subjective - Subjective Subjective: Evaluated patient with student instructional technology director Sourav, agree with plan. [place] No MD Objective - Vital Signs/Intake & Output Intake & Output: Intake & Output 02/17/24 02/18/24 02/19/24 02/20/24 23:59 23:59 23:59 23:59 Intake Total 322.700 Balance 322.700 - Lab Results Fish Bones: 02/20/24 10:25 Other Labs: Lab Results x24hrs 02/20/24 02/20/24 Range/Units 10:25 10:25 WBC 12.5 H (4.8-10.8) x10^3/uL RBC 3.57 L (4.20-5.40) 10^6/uL Hgb 11.6 L (12.0-16.0) g/dL Hct 34.5 L (37.0-47.0) % MCV 96.6 (81.0-99.0) fL MCH 32.5 H (27.0-31.0) pg MCHC 33.6 (32.0-36.0) g/dL RDW 13.1 (12.0-15.0) % Plt Count 223 (130-450) 10^3/uL MPV 9.9 (7.9-10.8) fL Neut # (Auto) 9.2 H (1.5-6.6) 10^3/uL Lymph # (Auto) 2.3 (1.5-3.5) 10^3/uL Jasper # (Auto) 0.9 (0.0-1.0) 10^3/uL Eos # (Auto) 0.1 (0.0-0.7) 10^3/uL Baso # (Auto) 0.0 (0.0-0.1) 10^3/uL Absolute Nucleated RBC 0.00 x10^3/uL Nucleated RBC % 0.0 /100WBC Blood Type O POSITIVE Antibody Screen NEGATIVE
[2024-02-20] MEDS ORDERED: LACTATED RINGERS 2,000 ML ONE (20:05)
[2024-02-20] MEDS ORDERED: ROPIVACAINE 0.2% 200 MG/100 ML BAG EP ONE (20:45)
[2024-02-20] MEDS ORDERED: ePHEDrine 50 MG/ML VIAL IVP PRN (21:44)
[2024-02-20] MEDS ORDERED: METOCLOPRAMIDE 10 MG/2 ML VIAL IVP PRN (21:44)
[2024-02-20] MEDS ORDERED: NALOXONE 0.4 MG/ML VIAL IVP PRN (21:44)
[2024-02-20] MEDS ORDERED: ROPIVACAINE 0.2% 200 MG/100 ML BAG EP PRN (21:44)
[2024-02-20] MEDS ORDERED: diphenhydrAMINE INJ 50 MG/ML VIAL IVP PRN (21:44)
[2024-02-20] MEDS ORDERED: ONDANSETRON 4 MG/2 ML VIAL IVP PRN (21:44)
[2024-02-20] MEDS ORDERED: NALBUPHINE 10 MG/ML AMP IVP PRN (21:44)
--- NOTE | 2024-02-21 00:08 | PROVIDER PROGRESS NOTE ---
<Lucero Benjamin - Last Filed: 02/21/24 00:12> Labor Progress Note - Uterine Monitoring Uterine Monitoring Mode: positive: External toco, IUPC Contraction Frequency (min/apart): 2-3 Contraction Intensity: positive: Strong Uterine Resting Tone: positive: Soft - Monitoring Monitor Mode: positive: External ultrasound Heart Rate Baseline: 130 Heart Rate Variability: positive: Moderate (6-25 bmp) Accelerations: positive: Present, 15x15 Decelerations: positive: Variable Strip Review: positive: Category I - Vaginal Exam Dilation (in cm): 7 Effacement (%): 80 Station: 1 - Labor Progress Note Labor Progress Note/Additional Text: S: Right side lying. Feeling comfortable with her epidural. O: FHR baseline 125, min-mod variability, + accels, intermittent variables and early decelerations. S/P misoprostol 25mcg BC Pitocin @ 18mu/min Poor toco tracing A: 29yo @ 39wks gestation by first trimester u/s and sure LMP Elective IOL FHR primarily Category I. Intermittent Category II. Inadequate interpretation of uterine activity GBS positive Increased hemorrhage risk. P: IUPC placement Continue pitocin titration up to 30mu/min to achieve adequate MVU Continuous monitoring. Continue GBS prophylaxis. maintain epidural for pain management encourage rotations in bed on peanut ball 1 unit crossmatched. Second IV placement. Anticipate . Reviewed plan of care with second mate/supervising physician JOSE Galan, Student Nurse Network Architect <[place] No - Last Filed: 02/22/24 07:46> Labor Progress Note - Labor Progress Note Labor Progress Note/Additional Text: Agree with assessment and plan. Present for care of patient with student nurse back line cook Sourav. [place] No MD
--- NOTE | 2024-02-21 01:14 | DELIVERY NOTE ---
<Lucero Benjamin - Last Filed: 02/21/24 01:12> Delivery Note - Labor Labor: positive: Augmented by ARM, Induced by oxytocin - Delivery Method Infant Delivery Method: positive: Spontaneous vaginal delivery - Presentation Presentation: positive: Vertex, SUHA - left occiput anterior - Nuchal Cord Nuchal Cord: positive: None - Anesthetic Anesthetic Type: - Amniotic Fluid Description Amniotic Fluid Description: positive: Clear - Episiotomy Type Episiotomy Type: positive: None - Laceration Laceration: positive: None - Conger Conger: positive: Placed in direct skin contact with mother, Bulb syringe, Stimulated, Warmed, Ephraim used Conger sex: positive: Male - Cord Cord: positive: 3 vessels - Placenta Placenta: positive: Intact - Estimated Blood Loss Estimated Blood Loss (in cc): 200 - Post Delivery Events Post Delivery Events: positive: No post delivery events - Delivery Comments (Free Text/Narrative) Delivery Comments (Free Text/Narrative): This 29 yo at 39 weeks by sure LMP and confirmed by 8+5 week ultrasound presented to L&D on 02/20/2024 at 0915 for elective induction of labor. complicated by abnormal glucose in (without GDM diagnosis) and suspected macrosomia. GBS +, prophylaxis initiated upon admission. SVE 3/60/-1, anterior, soft. JAVED SCORE 10. Induction began with 25mcg buccal misoprostol, followed by Pitocin. MAXIMUM INFUSION rate 20mu/min. An IUPC was placed to more accurately monitor intrauterine activity. FHR pattern demonstrated 130s baseline in primarily category I prior to second stage. Normal labor course. Epidural placed upon maternal request. AROM occurred at 2143. She then progressed to complete/complete at 0045. Second stage began at 0051. : Normal spontaneous vaginal delivery of a viable MALE infant on 02/20/2024 at 0055. No Nuchal cord.The was placed on maternal abdomen, stimulated, dried and placed skin to skin. Apgars 9 & 9 at 1& 5 minutes. The umbilical cord was allowed to stop pulsating at which time it was doubly clamped by delivering provider and cut by FOB. 3VC. Cord blood was obtained. Fundal massage and gently cord traction applied for active management of the third stage, placenta delivered spontaneously and intact at 0101 EBL 200. Placenta was WAS NOT sent to pathology. Pitocin administered via IV for hemostasis and allowed to run freely. Uterine fundus firm and there is no excessive bleeding. The perineum, vagina and cervix were inspected and found to be intact. Family bonding well. Both mother and baby are in stable condition. Needle and sponge counts were correct. Patient verbalized consent for my participation in her delivery in my role as Student Nurse Product Inspection Supervisor. JOSE Galan, Student Nurse Product Inspection Supervisor <[place] No - Last Filed: 02/22/24 07:45> Delivery Note - Delivery Comments (Free Text/Narrative) Delivery Comments (Free Text/Narrative): I was present and participated in the delivery of a live pittman with Student Nurse Product Inspection Supervisor Sourav. No complications from the delivery and mother and are doing well. weight 4274g [place] No MD
[2024-02-21] MEDS: miSOPROStoL 200 MCG TABLET BC PRN (01:31)
[2024-02-21] MEDS: OXYTOCIN/SODIUM CHLORIDE 500 ML IV PRN (01:38)
[2024-02-21] MEDS: METHYLERGONOVINE 0.2 MG/ML VIAL IM PRN (01:52)
[2024-02-21] MEDS ORDERED: HYDROCORTISONE 1% CREAM 28 GM TUBE PR PRN (02:50)
[2024-02-21] MEDS ORDERED: WITCH HAZEL/GLYCERIN 1 PAD TOP PRN (02:50)
[2024-02-21] MEDS ORDERED: LACTATED RINGERS 1,000 ML IV SCH (03:00)
[2024-02-21] MEDS: IBUPROFEN 800 MG TABLET PO SCH (03:25)
[2024-02-21] MEDS: ACETAMINOPHEN 500 MG TABLET PO SCH (03:25)
--- NOTE | 2024-02-21 12:02 | PROVIDER PROGRESS NOTE ---
Subjective - Prog Note Date Prog Note Date: 02/21/24 Prog Note Time: 11:59 - Subjective Pt reports feeling: Improved Subjective: Subjective: Patient reports she is doing well. Comfortable WITHOUT narcotic pain management Lochia appropriate. Denies heavy bleeding. Ambulating in halls this morning. Tolerating oral intake. Diet: Regular. Voiding without difficulty. Patient is bonding with baby in room and other kiddos Breast feeding going well. Denies feeling lightheaded, dizzy or excessively fatigued. Objective - Vital Signs/Intake & Output Reviewed Vital Signs: Yes Vital Signs: Vital Signs x48h Temp Pulse Resp BP Pulse Ox 02/21/24 09:45 36.6 C 82 18 116/57 L 97 02/21/24 04:46 36.9 C 88 16 131/55 H 99 Intake & Output: Intake & Output 02/18/24 02/19/24 02/20/24 02/21/24 23:59 23:59 23:59 23:59 Intake Total 8381.962 7853.334 Output Total 1050 Balance 1125.400 136.334 - Objective General Appearance: positive: No acute distress Eyes Bilateral: positive: Normal inspection - Lab Results Fish Bones: 02/20/24 10:25 Other Labs: Lab Results x24hrs 02/20/24 Range/Units 10:25 Blood Type O POSITIVE Antibody Screen NEGATIVE Crossmatch IS Only See Detail - Other Results/Comments Other Results/Comments: General: Alert, oriented, no apparent distress. Cardiovascular: No edema. Lungs: No increased work of breathing. ABX Reporting Has patient been on IV antibiotics over the past 48 hours?: Yes Assessment/Plan - Problem List (1) Normal vaginal delivery Impression: 29yo s/p 02/21/2024 @ 0055 - Routine care - Anticipate discharge tomorrow JOSE Galan, Student Nurse Director Of Sleep (2) Exclusive by mother Impression: Experienced mother support PRN
[2024-02-21] MEDS: DOCUSATE SODIUM 100 MG CAPSULE PO SCH (17:50)
[2024-02-21 18:05] VITALS: O2SAT 98
--- NOTE | 2024-02-22 07:55 | Discharge Plan ---
Discharge Plan Problem Reviewed?: Yes Disposition: Home, Self Care Condition: Good Diet: Regular Activity Restrictions: No Restrictions Shower Restrictions: No Driving Restrictions: No Weight Bearing: Full Weight Instruction Topics: Vaginal, Self Care, Breastfeed Holds, Nutrition No Smoking: If you smoke, Please STOP! Call for help. Follow-up with: Lucero Benjamin ARNP [Provider Admit Priv/Credential] -
--- NOTE | 2024-02-22 08:00 | DISCHARGE SUMMARY ---
Discharge Summary Admit Date: 02/20/24 Discharge Date: 02/22/24 Discharging Provider: Dr. Starr Ta Code Status: Attempt Resuscitation Condition at Discharge: Good Discharge Disposition: 01 Home, Self Care - HOSPITAL COURSE Hospital Course: Date of Admission: 02/20/2024 Date of Discharge: 02/22/2024 Diagnosis on admission: 1. 29 yo @ 39 weeks gestation by 8+5 wk U/S 2. GBS positive 3. Suspected macrocosmia 4. Term elective induction of labor 5. JAVED SCORE 10. 6. FHR Cat I Diagnosis on Discharge 1. 29 yo s/p on 02/21/2024 at 0055 of viable male . weight, 4274g 2. PPD #1 3. intact perineum 4. exclusively . Brief History: She is a patient of [facility] who presented to L&D on 02/21/2024 @ 0900 for elective induction of labor. GBS+, adequately treated. Cervical ripening with misoprostol, then induction with oxytocin and AROM for further augmentation. She spontaneously delivered a viable male apgars 9& 9 at 1 & 5 minutes respectively. intact perineum. EBL 200 ml. Some increased bleeding within the immediate period. Rubella immune, varicella immune, blood type, O+ She has been doing well in her course. She is ambulating frequently in the halls and tolerating a regular diet. She is urinating without difficulty and her lochia is light/ normal. Her pain is well controlled without narcotic management. She will be discharged to home today on day 1 and encouraged to continue OTC IBU, tylenol and colace. She intends to follow up with [facility] in one week. She is unsure of her preferred method of control. Likely condoms until cessation of , may consider the contraceptive ring at that time. She has been given precautions to call if she has any any new or worsening sx such as fevers, chills, abdominal pain, increasing bleeding, or foul smelling vaginal lochia. preeclamptic precautions reviewed as well. JOSE Galan, Student Nurse Materials Intern - ALLERGIES Allergies/Adverse Reactions: Allergies Allergy/AdvReac Type Severity Reaction Status Date / Time No Known Drug Allergies Allergy Verified 02/20/24 10:10 - MEDICATIONS Home Medications: Ambulatory Orders Medication Instructions Recorded Confirmed Aspirin [[place] Aspirin] 81 mg PO DAILY 02/20/24 02/20/24 Ferrous Sulfate [Feosol] 325 mg PO DAILY 02/20/24 02/20/24 Pnv No.95/Ferrous Fum/Folic AC 1 each PO DAILY 02/20/24 02/20/24 [ Tablet] Pyridoxine HCl (Vitamin B6) 25 mg PO DAILY 02/20/24 02/20/24 [Vitamin B-6] metFORMIN [Glucophage] 500 mg PO DAILY 02/20/24 02/20/24 - PHYSICAL EXAM AT DISCHARGE General Appearance: positive: No acute distress Eyes Bilateral: positive: Normal inspection Neck: positive: Nml inspection Abdomen: positive: Non-tender Skin: positive: Color nml Extremities: positive: Full ROM Neurologic/Psychiatric: positive: Oriented x3 - LABS Result Diagrams: 02/20/24 10:25
--- NOTE | 2024-02-22 09:33 | DISCHARGE SUMMARY ---
<Lucero Benjamin - Last Filed: 02/22/24 11:10> Discharge Summary Admit Date: 02/20/24 Discharge Date: 02/22/24 Discharging Provider: Dr. Ta Code Status: Attempt Resuscitation Condition at Discharge: Good Discharge Disposition: 01 Home, Self Care - HPI History of Present Illness: Date of Admission: 02/20/2024 Date of Discharge: 02/22/2024 Diagnosis on admission: 1. 29 yo @ 39 weeks gestation by 8+5 wk U/S 2. Term elective induction of labor 3. JAVED SCORE 10. 4. FHR Cat I 5. GBS Positive Diagnosis on Discharge 1. 29 yo PPD #1 S/P on 02/21/2024 @ 0055 2. Exclusively 3. intact perineum Brief History: She is a patient of [facility] and presented on 02/20/2024 for elective induction of labor. Induction began with cervical ripening (misoprostol x1 dose), followed by oxytocin and AROM. She spontaneously delivered a viable male infant apgars 9&9 at 1&5 minutes respectively. weight 4274g. EBL 200 ml. Some increased bleeding in the immediate period but quickly normalized. Intact perineum. Rubella and Varicella immune. She has been doing well in her course. She is ambulating and tolerating a regular diet. She is urinating without difficulty and her lochia is normal./light. Her pain is well controlled without narcotic management. She barbara l be discharged to home today on day 1 wand encouraged to take PRN IBU, tylenol and colace. She intends to follow up with [facility] in 1 week. She has been given precautions to call if she has any any new or worsening sx such as fevers, chills, abdominal pain, increasing bleeding, or foul smelling vaginal lochia. preeclamptic precautions reviewed as well. JOSE Galan, Student Nurse Home Health Care Social Worker - ALLERGIES Allergies/Adverse Reactions: Allergies Allergy/AdvReac Type Severity Reaction Status Date / Time No Known Drug Allergies Allergy Verified 02/20/24 10:10 - MEDICATIONS Home Medications: Ambulatory Orders Medication Instructions Recorded Confirmed Aspirin [[place] Aspirin] 81 mg PO DAILY 02/20/24 02/20/24 Ferrous Sulfate [Feosol] 325 mg PO DAILY 02/20/24 02/20/24 Pnv No.95/Ferrous Fum/Folic AC 1 each PO DAILY 02/20/24 02/20/24 [ Tablet] Pyridoxine HCl (Vitamin B6) 25 mg PO DAILY 02/20/24 02/20/24 [Vitamin B-6] metFORMIN [Glucophage] 500 mg PO DAILY 02/20/24 02/20/24 - LABS Result Diagrams: 02/20/24 10:25 <Starr Ta - Last Filed: 02/26/24 21:04> Discharge Summary - LABS Result Diagrams: 02/20/24 10:25 - FOLLOW UP Follow Up: reviewed and agree.
[2024-02-22 10:46] VITALS: BP 126/67
--- NOTE | 2024-02-22 11:00 | Labor Flowsheet ---
Labor Flowsheet Datetime Report Generated by CPN: 02/22/2024 11:00 Datetime: 02/22/2024 10:03 VITAL SIGNS NBP Sys/Melly/Mean (mmHg): 126 : 67 : 79 Pulse: 74 Datetime: 02/21/2024 02:59 Stage of : SpO2 (%): 96 Datetime: 02/21/2024 02:14 Temperature (C): 38.5 Temperature Route: Axillary Datetime: 02/21/2024 01:59 PAIN Pain Scale: 0 Pain Presence: None/Denies Pain Type: N/A Datetime: 02/21/2024 01:14 Respirations: 16 Datetime: 02/21/2024 01:10 Epidural Procedure Other: Cath Removed; Cath Intact Datetime: 02/21/2024 00:59 Membranes Ruptured Date/Time: 02/20/2024 21:43 Datetime: 02/21/2024 00:54 LaborFlag: Labor Datetime: 02/21/2024 00:45 UTERINE ACTIVITY Monitor Mode: Internal Frequency (min): 1.5-3 Quality: Strong Duration (sec): 50-90 Pattern: Normal: <= 5 Contractions in 10 Minutes Resting Tone (Palpate): Relaxed ASSESSMENT A Monitor Mode: External US FHR Baseline Rate : 125 Variability: Minimal - Undetectable to <=5 bpm Accelerations: None Decelerations: Late Category: Category II Datetime: 02/21/2024 00:43 VAGINAL EXAM Dilatation (cm): 9.5 Effacement (%): 100 Datetime: 02/21/2024 00:30 Actions for Decelerations: Side to Side; IV Bolus; Sterile Vaginal Exam; Provider Notified Comments: pitocin decreased Datetime: 02/20/2024 23:43 Station: 1 Exam by: chelsie prabhakar snm Datetime: 02/20/2024 23:30 Monitor Interventions for UA: [place] Adjusted Datetime: 02/20/2024 23:25 Patient Position/Activity: Right Lateral Datetime: 02/20/2024 22:48 Monitor Interventions for FHR: Ultrasound Adjusted Datetime: 02/20/2024 22:45 Patient Care Comments: peanut ball Datetime: 02/20/2024 22:00 I/O Interventions: Muse Cath Inserted Datetime: 02/20/2024 21:43 Membrane Status: Ruptured Membranes Rupture Method: Artificial Amniotic Fluid Color: Clear Amniotic Fluid Amount: Small Amniotic Fluid Odor: Normal Datetime: 02/20/2024 21:12 Epidural Procedure: Loading Dose Datetime: 02/20/2024 21:02 ANESTHESIA Anesthesia Plans: Epidural Datetime: 02/20/2024 20:50 PROCEDURE TIME OUT Procedure Verify: Correct Patient Identity; Correct Side and Site are Marked; Accurate Procedure Co nsent Form; Agreement on Procedure to be Done; Correct Patient Position; Relevant Images and Results are Properly Labeled and Displayed; Safety Precautions Based on Patient History or Medication Use Epidural Positioning: Sitting Datetime: 02/20/2024 20:02 Cervix, Position: Anterior Datetime: 02/20/2024 19:57 Communication Comments: Dr Oneal and Chelsie SNM at bedside Datetime: 02/20/2024 19:00 Pitocin Checklist: At Least 1 Acceleration of 15 bpm x 15 Seconds in 30 Minutes or Adequate Variabi lity; No More than 1 Late Deceleration Occurred in Past 30 Minutes; No More than 2 Variable Decelerat ions > 60 Seconds in Duration and decreasing >60 bpm in 30 minutes; No More than 5 Uterine Contractio ns in 10 Minutes for any 20 Minute Interval; Uterus Palpates Soft between Contractions Datetime: 02/20/2024 18:45 MEDICATIONS Pitocin (milliunits): Increased to @ 10 Datetime: 02/20/2024 16:18 PATIENT CARE IV/Blood Work: IV Bag Number @ 1 Datetime: 02/20/2024 15:38 Antibiotics: Ampicillin IV 1 Gm Datetime: 02/20/2024 15:30 Contraction Comments: pt. walking in hallway Datetime: 02/20/2024 14:00 COMMUNICATION Communication: Provider at Bedside Datetime: 02/20/2024 11:41 Cervical Ripening Agents: Cytotec @
== END 2024-02-22 10:59 | disposition home or self-care (01) | DRG 807 ==
LOC: WFO 09:12 → FBP 09:35 → WFO 09:39 → FBP 09:40
PROVIDERS: ADMIT Obstetrics & Gynecology; ATTEND Obstetrics & Gynecology
PROC: 3E0DXGC Introduction of Other Therapeutic Substance into Mouth and Pharynx, External Approach (ICD-10-PCS; principal; 2024-02-20)
PROC: 3E033VJ Introduction of Other Hormone into Peripheral Vein, Percutaneous Approach (ICD-10-PCS; 2024-02-20)
PROC: 10907ZC Drainage of Amniotic Fluid, Therapeutic from Products of Conception, Via Natural or Artificial Opening (ICD-10-PCS; 2024-02-20)
PROC: 10H07YZ Insertion of Other Device into Products of Conception, Via Natural or Artificial Opening (ICD-10-PCS; 2024-02-20)
PROC: 10E0XZZ Delivery of Products of Conception, External Approach (ICD-10-PCS; 2024-02-21)
DX: O99.824 Streptococcus B carrier state complicating childbirth (principal); Z37.0 Single live birth; Z3A.39 39 weeks gestation of pregnancy; O36.63X0 Maternal care for excessive fetal growth, third trimester, not applicable or unspecified; O99.810 Abnormal glucose complicating pregnancy; O99.214 Obesity complicating childbirth
CPT/HCPCS: 36415; 59409; 85025; 86850; 86900; 86901; 86920; A9270; J2210; J7120